=== PATIENT | female | born 1950 | race Caucasian/White ===

== ENCOUNTER → 2017-10-22 | Outpatient (CLI) | payer MEDICARE ==
[~2017-10-22] MED LIST: ADDE20 PO; AMIT50TA3 PO; ARMO90TA PO; ASPI-516 CHEW; BIOT1CHW PO; CALC1TAB87 PO; CELE200C PO; CLON1TAB PO; ESZO2 PO; GABA300C5 PO; LIPI20TA PO; MELA1CHW3 CHEW; MULT-65 PO; PRIS100T PO; TRIA37.53 PO; VITA500T83 PO
[2017-10-22 15:45] LABS: AUTOMATED NEUTROPHIL # 7.2 TH/MM3 (1.8-7.7); BASOPHIL % 0.4 % (0.0-2.0); EOSINOPHIL # 0.2 TH/MM3 (0-0.4); EOSINOPHIL % 1.6 % (0.0-4.0); HEMATOCRIT 34.9 % (35.0-46.0); HEMOGLOBIN 11.6 GM/DL (11.6-15.3); LYMPH % 14.6 % (9.0-44.0); LYMPHOCYTE # 1.4 TH/MM3 (1.0-4.8); MEAN CELL VOLUME 79.7 FL (80.0-100.0); MEAN CORPUSCULAR HEMOGLOBIN 26.6 PG (27.0-34.0); MEAN CORPUSCULAR HGB CONC 33.4 % (32.0-36.0); MEAN PLATELET VOLUME 7.1 FL (7.0-11.0); MONO % 8.2 % (0.0-8.0); MONOCYTE # 0.8 TH/MM3 (0-0.9); NEUT % 75.2 % (16.0-70.0); PLATELET COUNT 402 TH/MM3 (150-450); RED BLOOD COUNT 4.38 MIL/MM3 (4.00-5.30); RED CELL DISTRIBUTION WIDTH 18.6 % (11.6-17.2); WHITE BLOOD COUNT 9.6 TH/MM3 (4.0-11.0)
[2017-10-22 15:56] LABS: BILIRUBIN, URINE NEG (NEG); BLOOD, URINE NEG (NEG); GLUCOSE,URINE NEG (NEG); KETONE, URINE NEG (NEG); NITRITE,URINE NEG (NEG); SQUAMOUS EPITHELIAL CELL URINE 4 /hpf (0-5); TRANSITIONAL EPI CELLS, URINE <1 /hpf; URINE COLOR YELLOW (YELLW/STRAW); URINE LEUKOCYTE ESTERASE SMALL (NEG)
[2017-10-22 16:16] LABS: ALBUMIN 3.7 GM/DL (3.4-5.0); ALT (GPT) 20 U/L (10-53); AST (GOT) 21 U/L (15-37); BICARBONATE 29.4 MEQ/L (21.0-32.0); BLOOD UREA NITROGEN 24 MG/DL (7-18); CALCIUM 9.1 MG/DL (8.5-10.1); CHLORIDE 101 MEQ/L (98-107); CREATININE 1.03 MG/DL (0.50-1.00); GLOMERULAR FILTRATION RATE 53 ML/MIN (>89); GLUCOSE,FASTING 117 MG/DL (74-99); SODIUM (NA) 136 MEQ/L (136-145)
[2017-10-22 16:19] LABS: ALKALINE PHOSPHATASE 109 U/L (45-117); TOTAL BILIRUBIN ADULT 0.3 MG/DL (0.2-1.0); TOTAL PROTEIN 7.7 GM/DL (6.4-8.2)
--- NOTE | 2017-10-22 16:19 | RADRPT ---
EXAM DATE/TIME: 10/22/2017 15:38 [place] COMPARISON: No previous studies available for comparison. INDICATIONS : Evaluate for pneumonia, pneumothorax or communicable disease. Pre-op, zygomatic surgery. MEDICAL HISTORY : None. SURGICAL HISTORY : None. ENCOUNTER: Initial ACUITY: 1 day PAIN SCORE: 0/10 LOCATION: Bilateral chest FINDINGS: There is a nodular prominence in the right infrahilar region which could be confluence of vascular st ructures. Mass is not excluded. The lungs are otherwise symmetrically aerated and grossly clear. Card iac contours are otherwise satisfactory. There is degenerative change present in the spine. CONCLUSION: Cannot exclude right infrahilar mass or nodule. Recommend CT chest for further evaluation when clinic ally feasible. Carlos Soriano MD on October 22, 2017 at 16:17 Board Certified Radiologist. This report was verified electronically.
--- NOTE | 2017-10-23 09:45 | EKG ---
Date Performed: 10/22/2017 Time Performed: 14:44:11 PTAGE: 66 years EKG: Sinus rhythm NORMAL ECG PREVIOUS TRACING : 07/30/2006 12.10 DOCTOR: Fred Good Interpretating Date/Time 10/23/2017 09:43:31
== END ==
LOC: CPRE 14:16
PROVIDERS: ATTEND Dentist Oral and Maxillofacial Surgery
DX: Z01.812 Encounter for preprocedural laboratory examination (principal); Z01.811 Encounter for preprocedural respiratory examination; Z01.810 Encounter for preprocedural cardiovascular examination; I87.2 Venous insufficiency (chronic) (peripheral)
CPT/HCPCS: 36415; 71046; 80053; 81001; 85025; 85610; 85730; 93005

== ENCOUNTER 2017-10-26 13:15 | Observation (INO) | payer MEDICARE ==
[~2017-10-26] VITALS: Ht 170.2 cm; Wt 82.7 kg
--- NOTE | 2017-10-26 10:01 | MH ---
cc: EricaCarlos DDS DATE OF ADMISSION: 10/26/2017 HISTORY OF PRESENT ILLNESS: This 66-year-old female fell on her pool deck stairs and suffered a left tripod fracture of the malar bone. PAST SURGICAL HISTORY: 1. Reveals that she had a hysterectomy in 1993. 2. Tonsillectomy as a child. 3. Genioplasty in 1983. 4. Liposuction in 1984. PAST MEDICAL HISTORY: 1. Reveals she had a DVT of her left leg. 2. She had a shattered ankle in 2003 and a DVT followed. 3. She had normal and development. MEDICATIONS THAT SHE TAKES: 1. Aspirin 81 mg daily. 2. Elavil every evening at bedtime. 3. Gabapentin 300 mg every evening. 4. Lunesta 2 mg at bedtime 5. Klonopin 1 mg at bedtime. 6. Pristiq every evening. 7. Adderall 20 mg in the morning. 8. Triamterene hydrochlorothiazide 37.5 mg in the morning. 9. [place] thyroid in the morning. 10. Lipitor 20 mg in the morning. 11. Multivitamins. ALLERGIES: SHE IS ALLERGIC TO CODEINE. FAMILY HISTORY: Her mother, as well as daughter have of breast cancer. Father of leukemia. OCCUPATIONAL HISTORY: She is a housewife. She does not use tobacco. She reportedly states that she has stopped drinking alcohol in 2016. She has a great deal of difficulty with sleep. REVIEW OF SYSTEMS: HEAD: No history of headaches, dizziness, light headedness, injury or seizure disorder. She states she was not knocked unconscious at the time of the above-mentioned incident. 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 She wears contacts and uses readers. She does not have tearing, blind spots or double vision. NOSE: No history of bleeding, obstruction or discharge. MOUTH: Periodontal disease. THROAT: Some hoarseness currently. She has no soreness. She does have a history of thyroid disease. LYMPH NODES: No local or glandular enlargement. RESPIRATORY: No history of tuberculosis, shortness of breath, cough, asthma, COPD or sleep apnea. CARDIOVASCULAR: No history of precordial pain. She does have a history of hypertension. No history of heart murmur. Shortness of breath on exertion. She has occasional edema in her legs and she has a history of DVT in the left leg. No history of rheumatic fever or previous heart surgery. She has worn a Holter monitor for suspicious arrhythmia, but it proved negative. GASTROINTESTINAL: No history of gallbladder disease or peptic ulcer disease. GENITOURINARY: No history of urinary tract infections or kidney disease. MUSCULOSKELETAL: No pain, limitation of movement, muscular weakness with the exception of the left wrist after the injury. ENDOCRINE: No history of diabetes, hormone therapy, or growth abnormality. HEMATOLOGICAL: She has not had any anemia or bleeding tendencies. She is RH negative. She had transfusions at the time of her hysterectomy. NEUROLOGICAL: She has a great deal of difficulty with sleep. MENSTRUAL: She states she is not at this time. She has had 3 pregnancies and 3 children. PHYSICAL EXAMINATION: GENERAL: Reveals an alert, oriented female. HEAD: Normocephalic. She does have a depressed zygoma on the left. EYES: PERRLA. She does not have any restriction of her extraocular muscles. No diplopia on upward gaze. NOSE: Septum is in the midline. She is able to breathe well through her nose. MAXILLA: She has numbness in the second division of the trigeminal nerve. Her occlusion is stable. NECK: Supple. There is no thyroid enlargement. No pain on palpation. CARDIOVASCULAR: Heart, regular sinus rhythm without thrill, murmur or gallop. Her pulse is regular. CHEST: Her chest is clear. Peripheral pulses are full and equal throughout. ABDOMEN: Soft. There are no masses or organomegaly present. NEUROLOGIC: Cranial nerves II-XII intact with the exception of numbness in the left second division of the trigeminal nerve. The patient has been informed of the need for correction of the above-mentioned problem and she accepts the treatment plan. ADRIA Mercado/ambrose , 08:21 AM , 08:42 AM
[~2017-10-26 13:15] MED LIST changes: -ASPI-516 CHEW; +DEXAMETHASONE SOD PHOS 4 MG/ML VIAL IV ONE; +GLYCOPYRROLATE 1 MG/5 ML SYRINGE IV PUSH ONE; +LACTATED RINGER'S 1000 ML INJ 1,000 ML IV ONE; +LIDOCAINE HCL 1% PF 5 ML SYRINGE OTHER ONE; +NEOSTIGMINE 5 MG/5 ML SYRINGE IV PUSH ONE; +ONDANSETRON HCL 4 MG/2 ML VIAL IV ONE; +PHENYLEPH/NS 1000 MCG/10 ML SYR IV ONE; +PROPOFOL 200 MG/20 ML AMP IV ONE; +ROCURONIUM INJ 50 MG/5 ML SYRINGE IV PUSH ONE; +ceFAZolin INJ 1,000 MG VIAL IV ONE; +ePHEDrine/NS 25 MG/5 ML SYRINGE IV ONE
[2017-10-26] MEDS ORDERED: BACITRACIN TOP OINT 15 GM TUBE ONE (13:26)
[2017-10-26] MEDS ORDERED: CHLORHEXIDINE GLUCONATE 0.12% 15 ML CUP ONE (13:26)
[2017-10-26] MEDS ORDERED: LIDOCAINE 1%/EPINEPHrine 1:100,000 SOLN 30 ML VIAL ONE (13:27)
[2017-10-26] MEDS ORDERED: POVIDONE IODINE 5% (ANTISEPSIS KIT) 4 APPLICATIONS EACH NARE PRN (13:45)
[2017-10-26] MEDS ORDERED: SODIUM CHLORID 0.9% 500 ML IV PRN (13:45)
[2017-10-26] MEDS ORDERED: METOPROLOL TARTRATE 25 MG TAB PO PRN (13:45)
[2017-10-26] MEDS ORDERED: LACTATED RINGER'S 1000 ML IV PRN (13:45)
[2017-10-26] MEDS ORDERED: CHLORHEXIDINE GLUCONATE 2 % 1 PACK (2 CLOTHS) TOPICAL PRN (13:45)
[2017-10-26] MEDS ORDERED: ASPI-516 CHEW (13:58)
[2017-10-26] MEDS ORDERED: KETAMINE HCL 500 MG/5 ML VIAL ONE (15:46)
[2017-10-26] MEDS ORDERED: ceFAZolin INJ 1,000 MG VIAL IV ONE (15:58)
[2017-10-26] MEDS ORDERED: DO NOT ADM ANY ANTICOAGULANT DRUGS PRN (17:21)
[2017-10-26] MEDS ORDERED: MIDAZOLAM HCL 2 MG/2 ML VIAL ONE (17:26)
[2017-10-26] MEDS ORDERED: *morphine SULFATE 4 MG/ML PERIprocedure ONLY ONE ×2 (17:55→19:10)
[2017-10-26] MEDS ORDERED: ONDANSETRON ODT 4 MG TAB PO PRN (19:45)
[2017-10-26] MEDS ORDERED: ONDANSETRON HCL 4 MG/2 ML VIAL IV PUSH PRN (19:45)
[2017-10-26] MEDS ORDERED: SODIUM CHLORIDE FLUSH PRN IV FLUSH (19:45)
[2017-10-26] MEDS ORDERED: ESZOPICLONE 2 MG TAB PO PRN (20:30)
[2017-10-26] MEDS: SODIUM CHLORIDE FLUSH BID IV FLUSH SCH (21:00)
[2017-10-26 21:09] VITALS: BP 107/64; PULSE 89; RESP 17; TEMP 96.7; O2SAT 94
[2017-10-26] MEDS: GABAPENTIN 300 MG CAP PO SCH (21:30)
[2017-10-26] MEDS ORDERED: clonazePAM 1 MG TAB PO SCH (23:00)
[2017-10-26] MEDS ORDERED: AMITRIPTYLINE HCL 50 MG TAB PO SCH (23:00)
[2017-10-26] MEDS ORDERED: ESZOPICLONE 2 MG TAB PO SCH (23:30)
[2017-10-26 23:50] VITALS: BP 123/71; PULSE 88; RESP 17; TEMP 96.6; O2SAT 93
[2017-10-27] MEDS: traMADol HCL 50 MG TAB PO PRN ×2 (00:21→10:10)
[2017-10-27 04:59] VITALS: BP 106/65; PULSE 78; RESP 17; TEMP 96.7; O2SAT 95
[2017-10-27 07:23] VITALS: BP 113/57; PULSE 78; RESP 18; TEMP 96; O2SAT 95
--- NOTE | 2017-10-27 07:53 | HHI.PR ---
Subjective Remarks POD 1 s/p orif left tripod fracture pt seen and examined, nurse at bedside aaox3, nad tolerating po, ambulating , voiding Objective Vital Signs Date Time Temp Pulse Resp B/P (MAP) Pulse Ox O2 Delivery O2 Flow Rate FiO2 10/27/17 07:23 96.0 78 18 113/57 (75) 95 10/27/17 04:59 96.7 78 17 106/65 (79) 95 10/26/17 23:50 96.6 88 17 123/71 (88) 93 10/26/17 21:09 96.7 89 17 107/64 (78) 94 10/26/17 19:45 98.5 85 17 145/78 (100) 95 Nasal Cannula 2 10/26/17 19:15 87 17 157/73 (101) 95 Nasal Cannula 2 10/26/17 18:45 87 17 157/73 (101) 95 Nasal Cannula 2 10/26/17 18:30 77 17 144/77 (99) 95 Nasal Cannula 2 10/26/17 18:15 76 18 136/65 (88) 96 Nasal Cannula 2 10/26/17 18:00 78 18 134/62 (86) 94 Nasal Cannula 2 10/26/17 17:45 75 17 116/64 (81) 94 Nasal Cannula 2 10/26/17 17:30 68 17 118/65 (82) 95 Nasal Cannula 2 10/26/17 17:19 98.3 74 17 118/62 (80) 94 Nasal Cannula 4 10/26/17 14:00 98.3 84 20 117/69 (85) 98 I/O 10/26/17 10/26/17 10/26/17 10/27/17 10/27/17 10/27/17 07:00 15:00 23:00 07:00 15:00 23:00 Intake Total 1860 ml 480 ml Output Total 30 ml Balance 1830 ml 480 ml Intake Oral 360 ml 480 ml Other 1500 ml Output Estimated Blood Loss 30 ml # Voids 2 3 # Bowel Movements 0 0 Objective Remarks perrla/eomi left lateral orbit dressing in place/hemostatic/clean all wound margins well approximated, hemostatic, sutures intact good facial projection residual left v2 hypesthesia vss, afebrile Assessment and Plan Assessment and Plan POD 1 s/p orif left tripod fracture ok to d/c to home today f/up dr fischer [phone] next week soft diet no strenuous activity/exercises resume home meds as prescribed no nose blowing, no closed mouth sneezing/no drinking with straw Chris Azevedo DMD Oct 27, 2017 07:53
[2017-10-27] MEDS: SODIUM CHLORIDE FLUSH BID IV FLUSH SCH (08:51)
[2017-10-27] MEDS: GABAPENTIN 300 MG CAP PO SCH (08:52)
--- NOTE | 2017-11-04 09:14 | MP ---
cc: Carlos Maldonado DDS DATE OF OPERATION: 10/22/2017 INDICATIONS: This 66-year-old has a left zygoma fracture. OPERATIVE PROCEDURE PERFORMED: Open reduction internal fixation of left zygoma fracture. SURGEON: Carlos Maldonado MD WATER RECLAMATION SYSTEMS OPERATOR: Moira Hidalgo OPERATIVE PROCEDURE: The patient was brought to the operating room, placed supine on the operating room table in the supine position. The patient was anesthetized intravenously and intubated with ease via the oral route. The patient was prepped and draped in the usual manner for an intraoral, as well as extraoral procedure. A throat pack was placed. Attention was then directed to the area of the left frontozygomatic suture. A full-thickness skin and subcutaneous tissue incision was made in the left eyebrow over the left frontozygomatic suture line. Sharp dissection was carried out down to the periosteum. The periosteal flap was reflected. The fracture line was identified. A Joker elevator was placed underneath the zygoma fracture and the fracture was elevated into position. Once this was completed, a 4-hole 1.5 KLS plate was used to secure the fracture. Attention was then directed to the intraoral component of the maxillary fracture. A full-thickness mucoperiosteal incision was made 5 mm superior to mucogingival junction in the left posterior maxilla. This was carried out down to the periosteum. The periosteal flap was reflected. The fracture line was identified. A multi-hole 1.5 plate was fashioned from the piriform aperture to the posterior portion of the fracture. This was secured with multiple 1.5 mm screws. The incision line and wound was irrigated with copious amount of saline and the intraoral incision was closed with a running 4-0 Vicryl suture. Attention was directed to the facial incision. Deep sutures of the periosteum were placed with interrupted 4-0 Vicryl sutures. Subcutaneous sutures were also placed with 4-0 Vicryl . The incision line was then closed with a running 5-0 nylon suture. Dressings were placed and the patient was taken to the recovery room in good condition. ADRIA Mercado/NATHANIEL , 08:57 AM , 09:13 AM ADRIANA
== END 2017-10-27 11:16 | disposition home or self-care (01) ==
LOC: HSDC 13:15 → N06B 20:38
PROVIDERS: ADMIT Dentist Oral and Maxillofacial Surgery; ATTEND Dentist Oral and Maxillofacial Surgery
DX: S02.40FA Zygomatic fracture, left side, initial encounter for closed fracture (principal); Z86.718 Personal history of other venous thrombosis and embolism; Z79.82 Long term (current) use of aspirin; Z79.899 Other long term (current) drug therapy; W10.8XXA Fall (on) (from) other stairs and steps, initial encounter; Y92.095 Swimming-pool of other non-institutional residence as the place of occurrence of the external cause
CPT/HCPCS: 00190; 21365; C1713; G0378; J0690; J1100; J2250; J2270; J2370; J2405; J2710; J3010; J7120